=== PATIENT | male | born 1995 | race Caucasian/White ===

== ENCOUNTER 2018-05-15 00:06 | Emergency (ER) | payer MEDICAID ==
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
[2018-05-15] MEDS ORDERED: Amoxicillin/Clavulanate K 875-125 MG Tab PO ONE (01:02)
--- NOTE | 2018-05-17 08:46 | CR ---
Right hand: Four views of the right hand were obtained. Comparison: No previous study. Fracture is identified within the mid shaft of the fourth metacarpal. Displacement is seen by almost a shaft width as well as apex posterior angulation. Soft tissue swelling is noted. Joint spaces are preserved. No additional fracture or other bony abnormality is seen. Impression: 1. Displaced and angulated fracture within the mid shaft of the fourth metacarpal. 2. Soft tissue swelling. Diagnostic code #3
== END 2018-05-15 01:35 | disposition home or self-care (01) ==
LOC: JD.ED 00:06
DX: S62.300A Unspecified fracture of second metacarpal bone, right hand, initial encounter for closed fracture (principal); Y04.8XXA Assault by other bodily force, initial encounter
CPT/HCPCS: 29125; 73130; 99283; A9270; 99284-25

== ENCOUNTER 2020-01-07 14:14 | Emergency (ER) | payer BC, MEDICAID ==
[2020-01-07] MEDS ORDERED: Ketorolac 60 MG/2 ML SDV IM ONE (15:23)
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
--- NOTE | 2020-01-09 07:24 | CR ---
Right ankle: 4 views of the right ankle were obtained. Comparison: No previous ankle study is available. Soft tissue swelling is identified. Ankle mortise is symmetric. No acute fracture, dislocation or other bony abnormality is appreciated. Impression: 1. Soft tissue swelling. 2. No acute bony finding is seen on right ankle exam. Diagnostic code #2 This report was dictated in MDT
--- NOTE | 2020-01-09 07:30 | CR ---
Right foot: 4 views of the right foot were obtained. Comparison: No prior foot exam. Joint spaces are preserved. No fracture, dislocation or other bony abnormality is seen. Impression: 1. No abnormality is appreciated on right foot exam. Diagnostic code #1 This report was dictated in MDT
== END 2020-01-07 16:10 | disposition home or self-care (01) ==
LOC: JD.ED 14:14
DX: S93.401A Sprain of unspecified ligament of right ankle, initial encounter (principal); Z87.891 Personal history of nicotine dependence; W06.XXXA Fall from bed, initial encounter
CPT/HCPCS: 73610; 73630; 96372; 99283; J1885